=== PATIENT | female | born 1970 | race Caucasian/White ===

== ENCOUNTER 2018-12-07 17:44 | Emergency (ER) | payer BC ==
[2018-12-07] MEDS: KETOROLAC 30 MG INJ IM (20:37)
== END 2018-12-07 22:05 | disposition home or self-care (01) ==
LOC: FTE 22:05
DX: S16.1XXA Strain of muscle, fascia and tendon at neck level, initial encounter (principal); I10 Essential (primary) hypertension; X58.XXXA Exposure to other specified factors, initial encounter; Y92.9 Unspecified place or not applicable
CPT/HCPCS: 96372; 99284-25